=== PATIENT | male | born 1955 | race Caucasian/White ===

== ENCOUNTER 2018-11-18 06:26 | Day surgery (SDC) | payer BC ==
[2018-11-18] MEDS ORDERED: Lactated Ringers 1,000 ML IV SCH (07:00)
[2018-11-18] MEDS ORDERED: Midazolam 1 MG/ML 2 ML SDV ONE (07:12)
[2018-11-18] MEDS ORDERED: Propofol 200 MG/20 ML SDV ONE (07:12)
[2018-11-18] MEDS ORDERED: fentaNYL 100 MCG/2 ML SDV ONE (07:12)
[2018-11-18] MEDS ORDERED: Glycopyrrolate 0.2 MG/ML 2 ML SDV IVPUSH ONE (07:35)
[2018-11-18] MEDS ORDERED: Pantoprazole 40 MG Vial IVPUSH ONE (08:12)
--- NOTE | 2018-11-21 14:19 | OR ---
DATE OF PROCEDURE: 11/18/2018 PREOPERATIVE DIAGNOSIS: Probable gastroesophageal reflux disease. POSTOPERATIVE DIAGNOSES: 1. Ulcerating gastroesophageal reflux disease associated with a 2 cm hiatal hernia. 2. Mild antral gastritis. OPERATIVE PROCEDURE: Esophagogastroduodenoscopy with: 1. Biopsies of the esophagogastric junction for histologic evaluation. 2. Biopsies of antrum for CLOtest. ANESTHESIA: IV sedation. COPY MANAGER: Gerardo Nuñez MS-3. INDICATIONS FOR PROCEDURE: This is a 62-year-old male, presenting with some increasing symptoms suspicious for gastroesophageal reflux. Plan is to proceed with upper GI endoscopy with biopsies as indicated. Potential risks including bleeding and perforation were discussed, and the patient wishes to proceed. DETAILS OF PROCEDURE: The patient was taken to the operating room and placed in the left lateral decubitus position. IV sedation was administered, after which the upper GI endoscope was passed orally through the length of the esophagus, into the stomach with retroflexion view of the fundus, thereafter through the pyloric channel and into the proximal duodenum. Findings included some redness in the hypopharynx and larynx suggestive of somewhat nocturnal reflux. The upper esophageal sphincter and esophageal body were otherwise unremarkable. At the EG junction, there was a 2 cm hiatal hernia and this was associated with quite active ulcerative esophagitis with some linear ulcers extending upward roughly 2 to 3 cm above the upper gastric folds. There was no plaquing or stricturing suggestive of neoplasia. The remainder of the stomach showed some patchy redness in the antrum. Otherwise, the pyloric channel and duodenum to the junction of the third and fourth portions were unremarkable. At this point, biopsies were obtained from the antrum and sent for CLOtest for H. pylori. Multiple biopsies were obtained from the esophagogastric junction and sent for histologic evaluation. Minimal bleeding from the biopsy sites was seen and the procedure was then concluded. The patient will receive Protonix 40 mg IV in the recovery room and will be started on Protonix 40 mg daily. We will see him back next Wednesday to discuss treatment options and at that point, we will probably have some idea whether or not the medical management has been helpful. Kody Cooley MD /[id number]
== END 2018-11-18 09:44 | disposition home or self-care (01) ==
LOC: JP.SDS 06:26
PROVIDERS: ATTEND Surgery
DX: K25.9 Gastric ulcer, unspecified as acute or chronic, without hemorrhage or perforation (principal); K29.50 Unspecified chronic gastritis without bleeding; K44.9 Diaphragmatic hernia without obstruction or gangrene; K21.9 Gastro-esophageal reflux disease without esophagitis
CPT/HCPCS: 43239; 87081; C9113; J2250; J2704; J3010; J3490; J7120; 88305